=== PATIENT | female | born 1960 | race Caucasian/White ===

== ENCOUNTER 2017-03-15 06:33 | Day surgery (SDC) | payer OTHER ==
[2017-03-15] MEDS ORDERED: MIDAZOLAM 1 MG/ML 2 ML INJ (08:16)
[2017-03-15] MEDS ORDERED: FENTAnyl 50 MCG/ML VIAL (08:16)
== END 2017-03-15 10:37 | disposition home or self-care (01) ==
LOC: GIL 06:33
DX: Z12.11 Encounter for screening for malignant neoplasm of colon (principal)
CPT/HCPCS: 45378